=== PATIENT | female | born 1990 | race Native Hawaiian/Other Pacific Islander ===

== ENCOUNTER 2017-03-03 09:57 | Outpatient (CLI) | payer OTHER ==
[2017-03-03 12:27] LABS: POTASSIUM 4.2 mmol/L (3.6-5.2); SODIUM 137 mmol/L (136-145)
== END 2017-03-03 10:57 | disposition home or self-care (01) ==
LOC: LABW 09:57
PROVIDERS: Specialist
DX: G40.209 Localization-related (focal) (partial) symptomatic epilepsy and epileptic syndromes with complex partial seizures, not intractable, without status epilepticus (principal); G40.309 Generalized idiopathic epilepsy and epileptic syndromes, not intractable, without status epilepticus
CPT/HCPCS: 36415; 80053; 82542

== ENCOUNTER 2017-09-08 09:49 | Outpatient (CLI) | payer OTHER | END 2017-09-08 18:58 | disposition home or self-care (01) | LOC: RAD 09:49 | DX: M25.471 Effusion, right ankle (principal) ==